=== PATIENT | female | born 1995 | race Caucasian/White ===

== ENCOUNTER → 2022-12-28 | Outpatient (CLI) | payer SELFPAY ==
[2022-12-28 17:43] LABS: Prolactin 45.2 ng/mL; T4 Free Direct 0.81 ng/dL (0.76-1.46); Thyroid Stim Hormone (TSH) 1.51 uIU/mL (0.358-3.74)
== END | disposition home or self-care (01) ==
PROVIDERS: Visit Provider Obstetrics & Gynecology
DX: N64.52 Nipple discharge (principal)
CPT/HCPCS: 36415; 84146; 84439; 84443; 87070; 87205

== ENCOUNTER → 2022-12-31 | Outpatient (CLI) | payer SELFPAY ==
--- NOTE | 2022-12-31 08:22 | BI_ITS ---
MAMMOGRAPHY - BILATERAL DIAGNOSTIC REASON FOR EXAM: Female, 27 years old. Bilateral breast lumps. PERTINENT HISTORY: Sister with breast cancer. Grandmother with breast cancer. Aunt with breast cancer. TECHNIQUE: Digital bilateral breast kennedi (3D mammographic acquisition) in the CC and MLO projections. 2-D mediolateral oblique (MLO) and craniocaudad (CC) views of both breasts were obtained. CAD: Full Field Digital Mammography with Computer Added Detection was performed. COMPARISON: None. Baseline examination. FINDINGS: Breast Composition: The breasts are heterogeneously dense, which may obscure small masses. There is a 1.3 cm x 2.2 cm nodular density in the upper aspect of the left breast as seen on the mediolateral oblique view. This is not definitely seen on the craniocaudad projection. No other significant abnormalities are identified. BI/DIAG MAMM W/CAD, BILAT IMPRESSION: Negative diagnostic mammogram. With the patient''s history of bilateral palpable abnormalities, targeted ultrasound correlation recommended. ASSESSMENT CATEGORY: BIRADS Category 0: Incomplete. Need additional imaging evaluation. A letter regarding these results will be sent to the patient by the facility within 30 days. Approximately 10% of breast cancers are not detected by mammography. A normal mammogram should not delay biopsy of a clinically suspicious abnormality. Electronically Signed: Ritesh Agustin MD at 9:38 EST ,
--- NOTE | 2022-12-31 08:22 | US_ITS ---
STUDY: ULTRASOUND BREAST - LEFT REASON FOR EXAM: Female, 27 years old. Palpable lump left breast. TECHNIQUE: Axial and longitudinal images of the LEFT breast were performed with a high resolution ultrasound transducer. # OF IMAGES: 53 COMPARISON: Comparison is made with prior mammogram done earlier today. FINDINGS: LEFT Breast: Both outer and inner quadrants were examined with ultrasound. Mildly dilated subareolar ducts. IMPRESSION: Mildly dilated subareolar ducts. ASSESSMENT CATEGORY: BIRADS Category 2: Benign. A letter regarding these results will be sent to the patient by the facility within 30 days. Electronically Signed: Ritesh Agustin MD at 14:10 EST , STUDY: ULTRASOUND BREAST - RIGHT REASON FOR EXAM: Female, 27 years old. Palpable lump in the right breast. TECHNIQUE: Axial and longitudinal images of the RIGHT breast were performed with a high resolution ultrasound transducer. # OF IMAGES: 53 COMPARISON: Comparison is made with prior mammogram done earlier today. FINDINGS: RIGHT Breast: A 9 mm x 7 mm x 4 mm benign-appearing lymph node is seen at the 9:00 position of the breast at 8 cm from the nipple. US/Breast Limited Unilateral IMPRESSION: 9 mm x 7 mm x 4 mm benign-appearing lymph node is seen at the 8:00 position of the breast at 8 cm from the nipple. ASSESSMENT CATEGORY: BIRADS Category 2: Benign. A letter regarding these results will be sent to the patient by the facility within 30 days. Electronically Signed: Ritesh Agustin MD at 14:11 EST ,
== END | disposition home or self-care (01) ==
PROVIDERS: Referring Provider Obstetrics & Gynecology; Visit Provider Obstetrics & Gynecology
DX: N63.20 Unspecified lump in the left breast, unspecified quadrant (principal); Z80.3 Family history of malignant neoplasm of breast
CPT/HCPCS: 76642; 77062; 77066; G0279

== ENCOUNTER → 2025-01-25 | Outpatient (CLI) | payer OTHER, SELFPAY ==
[2025-01-25 09:29] LABS: hCG Titer Quant., Serum 504 mIU/mL (<9 non-preg)
== END | disposition home or self-care (01) ==
LOC: LAB 08:21
PROVIDERS: PCP Nurse Practitioner Family; Referring Provider Nurse Practitioner Women's Health; Visit Provider Nurse Practitioner Women's Health
DX: N91.2 Amenorrhea, unspecified (principal)
CPT/HCPCS: 36415; 84702